=== PATIENT | male | born 1990 | race Two or more races ===

== ENCOUNTER 2018-01-12 14:15 | Emergency (ER) | payer MEDICAID ==
[2018-01-12 14:59] LABS: URINE BLOOD (Dip) POC Trace-intact (NEGATIVE); URINE GLUCOSE (Dip) POC Negative (NEGATIVE); URINE KETONES (Dip) POC Trace (NEGATIVE); URINE LEUKOCYTE EST (Dip) POC Negative (NEGATIVE); URINE NITRITE (Dip) POC Negative (NEGATIVE); URINE TOTAL PROTEIN POC Negative (NEGATIVE)
[2018-01-12] MEDS: KETOROLAC 30 MG INJ IM (15:05)
== END 2018-01-12 16:24 | disposition home or self-care (01) ==
LOC: FTE 16:24
DX: M79.671 Pain in right foot (principal); M79.672 Pain in left foot; M54.5 Low back pain
CPT/HCPCS: 73630; 73630-50; 81003; 96372; 99284-25

== ENCOUNTER 2018-05-16 11:21 | Emergency (ER) | payer SELFPAY, MEDICAID ==
[2018-05-16] MEDS: KETOROLAC 60 MG INJ IM (12:15)
== END 2018-05-16 13:34 | disposition home or self-care (01) ==
LOC: FTE 11:21
DX: S80.11XA Contusion of right lower leg, initial encounter (principal); V49.69XA Unspecified car occupant injured in collision with other motor vehicles in traffic accident, initial encounter
CPT/HCPCS: 73590; 96372; 99284-25

== ENCOUNTER 2018-05-23 18:15 | Emergency (ER) | payer SELFPAY ==
[2018-05-23] MEDS: HYDROCODONE/APAP (10/325) TAB PO (20:13)
[2018-05-23] MEDS: KETOROLAC 30 MG INJ IM (20:14)
== END 2018-05-23 20:47 | disposition home or self-care (01) ==
LOC: FTE 18:15
DX: M54.5 Low back pain (principal); Z21 Asymptomatic human immunodeficiency virus [HIV] infection status
CPT/HCPCS: 96372; 99284-25

== ENCOUNTER 2018-07-26 00:58 | Emergency (ER) | payer MEDICAID, OTHER | END 2018-07-26 02:15 | disposition home or self-care (01) | LOC: E/R 00:58 | DX: T75.4XXA Electrocution, initial encounter (principal); Z21 Asymptomatic human immunodeficiency virus [HIV] infection status | CPT/HCPCS: 99282 ==